=== PATIENT | female | born 1955 | race Caucasian/White ===

== ENCOUNTER 2020-10-22 13:36 | Emergency (ER) | payer BC ==
[2020-10-22 14:14] VITALS: BP 140/62; PULSE 68; TEMP 97.9; BMI 34.7
[2020-10-22] MEDS ORDERED: KETOROLAC TROMETHAMINE 30 MG/1 ML VIAL IM ONE (15:43)
[2020-10-22] MEDS ORDERED: KETOROLAC TROMETHAMINE 30 MG/1 ML VIAL ONE (16:01)
== END 2020-10-22 16:18 | disposition home or self-care (01) ==
LOC: JERFT 13:36
PROC: 3E0233Z Introduction of Anti-inflammatory into Muscle, Percutaneous Approach (ICD-10-PCS; principal; 2020-10-22)
DX: M25.562 Pain in left knee (principal); W01.0XXA Fall on same level from slipping, tripping and stumbling without subsequent striking against object, initial encounter
CPT/HCPCS: 99284-25

== ENCOUNTER 2021-03-17 19:56 | Emergency (ER) | payer OTHER, BC ==
[2021-03-17] MEDS ORDERED: AZITHROMYCIN 500 MG TABLET PO ONE (21:08)
[2021-03-17] MEDS ORDERED: AZITHROMYCIN 500 MG TABLET ONE (21:11)
[2021-03-17 21:35] VITALS: BP 166/66; PULSE 76; TEMP 98.7; BMI 34.2
== END 2021-03-17 21:35 | disposition home or self-care (01) ==
LOC: FER 19:56
DX: J20.9 Acute bronchitis, unspecified (principal)
CPT/HCPCS: 87804; 99283-25

== ENCOUNTER 2021-12-08 07:23 | Emergency (ER) | payer OTHER, BC ==
[2021-12-08] MEDS ORDERED: DEXAMETHASONE SOD PHOSPHATE 10 MG/1 ML VIAL IVPUSH ONE (07:37)
[2021-12-08] MEDS ORDERED: SODIUM CHLORIDE 1,000 ML IV STA (07:37)
[2021-12-08] MEDS ORDERED: ONDANSETRON 4 MG/2 ML VIAL IVPUSH ONE (07:37)
[2021-12-08 07:41] VITALS: BP 152/77; PULSE 89; RESP 20; TEMP 101.4; BMI 34.2
[2021-12-08] MEDS ORDERED: DEXAMETHASONE SOD PHOSPHATE 10 MG/1 ML VIAL ONE (07:45)
[2021-12-08] MEDS ORDERED: ONDANSETRON 4 MG/2 ML VIAL ONE (07:45)
[2021-12-08] MEDS ORDERED: ACETAMINOPHEN 1000 MG/100 ML BAG IVPB ONE (07:50)
[2021-12-08 08:19] LABS: HEMATOCRIT 36.8 % (32.4-45.2); HEMOGLOBIN 12.8 G/dL (10.7-15.3); MCH 31.3 pg (25.7-33.7); MCHC 34.6 g/dl (32.0-36.0); MEAN CELL VOLUME 90.5 fl (80-96); MEAN PLT VOLUME 7.8 fl (7.5-11.1); PLATELET COUNT 197.8 10^3/uL (134-434); RBC 4.07 10^6/uL (3.60-5.2); RDW 13.6 % (11.6-15.6); WHITE BLOOD COUNT 8.1 10^3/uL (4.0-10.8)
[2021-12-08 08:39] LABS: ALBUMIN 3.7 g/dl (3.4-5.0); CREATININE 0.6 mg/dl (0.55-1.3); TOT PROT 6.6 g/dl (6.4-8.2)
[2021-12-08 09:16] LABS: THROAT:GRP A STREP NOT DETECTED (NOTDETECTED)
== END 2021-12-08 09:49 | disposition home or self-care (01) ==
LOC: FER 07:23
PROC: 3E0333Z Introduction of Anti-inflammatory into Peripheral Vein, Percutaneous Approach (ICD-10-PCS; principal; 2021-12-08)
PROC: 3E0333Z Introduction of Anti-inflammatory into Peripheral Vein, Percutaneous Approach (ICD-10-PCS; 2021-12-08)
PROC: 3E033GC Introduction of Other Therapeutic Substance into Peripheral Vein, Percutaneous Approach (ICD-10-PCS; 2021-12-08)
PROC: 3E0337Z Introduction of Electrolytic and Water Balance Substance into Peripheral Vein, Percutaneous Approach (ICD-10-PCS; 2021-12-08)
DX: U07.1 COVID-19 (principal)
CPT/HCPCS: 0241U-QW; 36415; 71045-TC-FY; 80053; 85027; 87651; 99284-25; J1100

== ENCOUNTER 2022-01-12 04:16 | Day surgery (SDC) | payer OTHER, BC ==
[2022-01-09 14:52] VITALS: BMI 33.9
[2022-01-12] MEDS ORDERED: MIDAZOLAM HCL 2 MG/2 ML SINGLE DOSE VIAL ONE (11:54)
[2022-01-12] MEDS ORDERED: ACETAMINOPHEN 325 MG TABLET (FP) PO ONE (12:00)
[2022-01-12] MEDS ORDERED: ONDANSETRON 4 MG/2 ML VIAL ONE (12:05)
[2022-01-12] MEDS ORDERED: DEXAMETHASONE SOD PHOSPHATE 4 MG/1 ML VIAL ONE (12:05)
[2022-01-12] MEDS ORDERED: PROPOFOL 20 ML ONE (12:35)
[2022-01-12] MEDS ORDERED: oxyCODONE HCL 5 MG TABLET PO PRN ×2 (12:40)
[2022-01-12] MEDS ORDERED: LACTATED RINGERS SOLUTION 1,000 ML IV SCH (12:45)
[2022-01-12 14:17] VITALS: RESP 20; TEMP 96
[2022-01-12] MEDS ORDERED: ACETAMINOPHEN 325 MG TABLET (FP) ONE (14:21)
[2022-01-12 14:46] VITALS: BP 152/80; PULSE 70
== END 2022-01-12 15:10 | disposition home or self-care (01) ==
LOC: JASU-SURG 04:16
PROVIDERS: ATTEND Urology
PROC: 0TBB8ZX Excision of Bladder, Via Natural or Artificial Opening Endoscopic, Diagnostic (ICD-10-PCS; principal; 2022-01-12 10:30)
DX: N30.20 Other chronic cystitis without hematuria (principal)
CPT/HCPCS: 88305-TC; 88342-TC; 94760

== ENCOUNTER 2023-09-17 09:09 | Emergency (ER) | payer OTHER, BC ==
[2023-09-17 09:24] VITALS: BP 155/67; PULSE 71; RESP 16; TEMP 98; BMI 34.2
[2023-09-17] MEDS ORDERED: ACETAMINOPHEN 500 MG TABLET (FP) ONE (09:37)
[2023-09-17] MEDS: ACETAMINOPHEN 500 MG TABLET (FP) PO ONE (09:40)
== END 2023-09-17 10:39 | disposition home or self-care (01) ==
LOC: FER 09:09
DX: M25.561 Pain in right knee (principal); X50.0XXA Overexertion from strenuous movement or load, initial encounter; Y92.009 Unspecified place in unspecified non-institutional (private) residence as the place of occurrence of the external cause
CPT/HCPCS: 73562-TC-RT-FY; 99283-25